=== PATIENT | female | born 2005 | race Caucasian/White ===

== ENCOUNTER 2023-12-05 13:13 | Emergency (ER) | payer SELFPAY ==
[2023-12-05] MEDS: Sodium Chloride 0.9% 10 ML Syringe FLUSH PRN (15:20)
[2023-12-05 15:24] LABS: BASOPHILS ABSOLUTE AUTO 0.1 K/mm3 (0.0-0.2); BASOPHILS PERCENT AUTO 0.8 % (0.0-1.0); EOSINOPHILS ABSOLUTE AUTO 0.2 K/mm3 (0.0-0.4); EOSINOPHILS PERCENT AUTO 1.4 % (0.0-6.0); HEMATOCRIT 42.4 % (37.0-47.0); HEMOGLOBIN 14.3 gm/dl (12.0-16.0); IMMATURE GRAN ABSOLUTE AUTO 0.05 K/mm3 (0.00-0.05); IMMATURE GRAN PERCENT AUTO 0.4 % (0.0-0.4); LYMPHOCYTES ABSOLUTE AUTO 3.3 K/mm3 (1.0-4.8); LYMPHOCYTES PERCENT AUTO 27.6 % (24.0-44.0); MEAN CORPUSCULAR HEMOGLOBIN 28.2 pg (28.0-32.0); MEAN CORPUSCULAR HGB CONC 33.7 g/dl (32.0-36.0); MEAN CORPUSCULAR VOLUME 83.6 fl (83.0-99.0); MEAN PLATELET VOLUME 9.5 fl (9.4-12.3); MONOCYTES ABSOLUTE AUTO 0.8 K/mm3 (0.0-0.8); MONOCYTES PERCENT AUTO 6.6 % (0.0-8.0); NEUTROPHILS ABSOLUTE AUTO 7.6 K/mm3 (1.8-7.7); NEUTROPHILS PERCENT AUTO 63.2 % (41.0-71.0); PLATELET COUNT,PLT 389 K/mm3 (150-400); RED BLOOD CELL COUNT 5.07 M/mm3 (4.10-5.30); WHITE BLOOD CELL COUNT,WBC 12.03 K/mm3 (3.9-11.3)
[2023-12-05 15:32] LABS: ALANINE AMINOTRANSFERASE,ALT 69 U/L (14-59); ALBUMIN 4.3 g/dl (3.4-5.0); ALKALINE PHOSPHATASE 77 U/L (46-116); ASPARTATE AMNIOTRANSFERASE,AST 41 U/L (15-37); BILIRUBIN TOTAL 0.3 mg/dL (0.2-1.0); BLOOD UREA NITROGEN,BUN 13 mg/dL (7-18); BUN/CREATININE RATIO 11.8 (14-18); CALCIUM 9.8 mg/dL (8.5-10.1); CARBON DIOXIDE,CO2 24 mEq/L (21-32); CHLORIDE,CL 103 mEq/L (98-107); CREATININE 1.1 mg/dL (0.55-1.02); EST CRCL DRUG DOSING (CG) 73.41 mL/min; ESTIMATED GFR 74 mL/min (>60); GLUCOSE RANDOM 86 mg/dL (70-99); PROTEIN TOTAL,TP 8.5 g/dl (6.4-8.2); SODIUM,NA 140 mEq/L (136-145)
[2023-12-05] MEDS: Iopamidol 755 Mg/ML 100 ML Bottle IVPUSH ONE (16:00)
[2023-12-05] MEDS: Sodium Chloride 0.9% 10 ML Syringe FLUSH ONE (16:00)
[2023-12-05] MEDS: Sodium Chloride 0.9% 100 ML IV SCH (16:00)
[2023-12-05 19:11] LABS: TROPONIN I HIGH SENSITIVITY < 4 pg/mL (<=51)
== END 2023-12-05 17:52 | disposition home or self-care (01) ==
LOC: JD.ED 13:13
DX: R07.89 Other chest pain (principal); Z86.16 Personal history of COVID-19
CPT/HCPCS: 36415; 71045; 71275; 80053; 84484; 85025; 85379; 93005; 99285; J3490; Q9967; 93010; 99284

== ENCOUNTER 2025-04-29 13:50 | Emergency (ER) | payer BC, MEDICAID ==
[2025-04-29] MEDS ORDERED: Sodium Chloride 0.9% 10 ML Syringe FLUSH PRN (14:08)
[2025-04-29 15:04] LABS: BASOPHILS ABSOLUTE AUTO 0.1 K/mm3 (0.0-0.2); BASOPHILS PERCENT AUTO 0.9 % (0.0-1.0); EOSINOPHILS ABSOLUTE AUTO 0.1 K/mm3 (0.0-0.4); EOSINOPHILS PERCENT AUTO 0.7 % (0.0-6.0); IMMATURE GRAN ABSOLUTE AUTO 0.02 K/mm3 (0.00-0.05); IMMATURE GRAN PERCENT AUTO 0.3 % (0.0-0.4); LYMPHOCYTES ABSOLUTE AUTO 1.6 K/mm3 (1.0-4.8); LYMPHOCYTES PERCENT AUTO 20.7 % (24.0-44.0); MEAN PLATELET VOLUME 10.9 fl (9.4-12.3); MONOCYTES ABSOLUTE AUTO 0.8 K/mm3 (0.0-0.8); MONOCYTES PERCENT AUTO 11.2 % (0.0-8.0); NEUTROPHILS ABSOLUTE AUTO 5.0 K/mm3 (1.8-7.7); NEUTROPHILS PERCENT AUTO 66.2 % (41.0-71.0); NRBC ABSOLUTE 0.00 (0.00-0.02); NRBC PERCENT 0.0 % (0.0-0.2); PLATELET COUNT,PLT 340 K/mm3 (150-400); RED BLOOD CELL COUNT 5.76 M/mm3 (4.10-5.30); WHITE BLOOD CELL COUNT,WBC 7.52 K/mm3 (3.9-11.3)
[2025-04-29 15:35] LABS: A/G RATIO 1.1 (1-2); ALANINE AMINOTRANSFERASE,ALT 172.0 U/L (14-59); ASPARTATE AMNIOTRANSFERASE,AST 83.0 U/L (15-37); BILIRUBIN TOTAL 1.0 mg/dL (0.2-1.0); BLOOD UREA NITROGEN,BUN 8.0 mg/dL (7-18); CARBON DIOXIDE,CO2 13.0 mEq/L (21-32); CHLORIDE,CL 104.0 mEq/L (98-107); CREATININE 0.9 mg/dL (0.55-1.02); EST CRCL DRUG DOSING (CG) 88.23 mL/min; ESTIMATED GFR 93.0 mL/min (>60); GLUCOSE RANDOM 87.0 mg/dL (70-99); POTASSIUM,K 3.2 mEq/L (3.5-5.1); PROTEIN TOTAL,TP 8.6 g/dl (6.4-8.2); SODIUM,NA 139.0 mEq/L (136-145)
[2025-04-29] MEDS: Sucralfate Suspension 1 GM/10 ML Cup PO ONE (16:56)
[2025-04-29] MEDS: Ondansetron 4 MG/2 ML SDV IVPUSH ONE (16:56)
[2025-04-29 18:43] LABS: APPEARANCE,URINE CLEAR (Clear); GLUCOSE,URINE NEGATIVE (Negative); OCCULT BLOOD,URINE NEGATIVE (Negative)
[2025-04-29 19:29] LABS: COARSE GRANULAR CASTS,URINE 0-5 /hpf (0-5); EPITHELIAL CELLS,URINE 0-5 /hpf (0-5)
[2025-04-29] MEDS: Potassium Chloride 20 MEQ Tab.ER PO ONE (19:59)
== END 2025-04-29 19:45 | disposition home or self-care (01) ==
LOC: JD.ED 13:50
DX: K21.9 Gastro-esophageal reflux disease without esophagitis (principal); E86.0 Dehydration; E87.6 Hypokalemia; Z79.899 Other long term (current) drug therapy; Z86.16 Personal history of COVID-19
CPT/HCPCS: 36415; 74019; 80053; 81001; 83690; 84703; 85025; 86140; 96361; 96374; 99284; A9270; J2405; J7030

== ENCOUNTER 2025-05-13 08:31 | Inpatient (IN) | payer BC ==
[2025-05-13] MEDS ORDERED: Sodium Chloride 0.9% 10 ML Syringe FLUSH PRN (08:59)
[2025-05-13 09:05] LABS: BASOPHILS ABSOLUTE AUTO 0.1 K/mm3 (0.0-0.2); BASOPHILS PERCENT AUTO 0.8 % (0.0-1.0); EOSINOPHILS ABSOLUTE AUTO 0.1 K/mm3 (0.0-0.4); EOSINOPHILS PERCENT AUTO 0.8 % (0.0-6.0); IMMATURE GRAN ABSOLUTE AUTO 0.02 K/mm3 (0.00-0.05); IMMATURE GRAN PERCENT AUTO 0.3 % (0.0-0.4); LYMPHOCYTES ABSOLUTE AUTO 1.0 K/mm3 (1.0-4.8); LYMPHOCYTES PERCENT AUTO 15.7 % (24.0-44.0); MEAN PLATELET VOLUME 10.6 fl (9.4-12.3); MONOCYTES ABSOLUTE AUTO 0.7 K/mm3 (0.0-0.8); MONOCYTES PERCENT AUTO 10.3 % (0.0-8.0); NEUTROPHILS ABSOLUTE AUTO 4.7 K/mm3 (1.8-7.7); NEUTROPHILS PERCENT AUTO 72.1 % (41.0-71.0); NRBC ABSOLUTE 0.00 (0.00-0.02); NRBC PERCENT 0.0 % (0.0-0.2); PLATELET COUNT,PLT 316 K/mm3 (150-400); RED BLOOD CELL COUNT 4.84 M/mm3 (4.10-5.30); WHITE BLOOD CELL COUNT,WBC 6.49 K/mm3 (3.9-11.3)
[2025-05-13] MEDS: Ondansetron 4 MG/2 ML SDV IVPUSH ONE (09:14)
[2025-05-13 09:31] LABS: A/G RATIO 1.1 (1-2); ALANINE AMINOTRANSFERASE,ALT 47.0 U/L (14-59); ASPARTATE AMNIOTRANSFERASE,AST 22.0 U/L (15-37); BILIRUBIN TOTAL 0.6 mg/dL (0.2-1.0); BLOOD UREA NITROGEN,BUN 6.0 mg/dL (7-18); CARBON DIOXIDE,CO2 19.0 mEq/L (21-32); CHLORIDE,CL 105.0 mEq/L (98-107); CREATININE 0.7 mg/dL (0.55-1.02); EST CRCL DRUG DOSING (CG) 113.43 mL/min; ESTIMATED GFR 125.0 mL/min (>60); GLUCOSE RANDOM 101.0 mg/dL (70-99); POTASSIUM,K 3.2 mEq/L (3.5-5.1); PROTEIN TOTAL,TP 7.8 g/dl (6.4-8.2); SODIUM,NA 141.0 mEq/L (136-145)
[2025-05-13] MEDS: Iopamidol 612 MG/ML 100 ML Bottle IVPUSH ONE (10:02)
[2025-05-13] MEDS: Sodium Chloride 0.9% 10 ML Syringe FLUSH PRN (10:02)
[2025-05-13] MEDS ORDERED: Ketorolac 30 MG/ML SDV IV PRN (17:24)
[2025-05-13] MEDS: fentaNYL 100 MCG/2 ML SDV IVPUSH ONE (17:49)
[2025-05-13] MEDS: Ondansetron 4 MG/2 ML SDV IV PRN (18:32)
[2025-05-13] MEDS: Lactated Ringers 1,000 ML IV SCH (18:34)
[2025-05-13] MEDS: Potassium Chloride 20 MEQ Tab.ER PO ONE (19:00)
[2025-05-14 04:32] LABS: BASOPHILS ABSOLUTE AUTO 0.1 K/mm3 (0.0-0.2); BASOPHILS PERCENT AUTO 0.8 % (0.0-1.0); EOSINOPHILS ABSOLUTE AUTO 0.1 K/mm3 (0.0-0.4); EOSINOPHILS PERCENT AUTO 1.4 % (0.0-6.0); IMMATURE GRAN ABSOLUTE AUTO 0.01 K/mm3 (0.00-0.05); IMMATURE GRAN PERCENT AUTO 0.2 % (0.0-0.4); LYMPHOCYTES ABSOLUTE AUTO 2.0 K/mm3 (1.0-4.8); LYMPHOCYTES PERCENT AUTO 30.9 % (24.0-44.0); MEAN PLATELET VOLUME 10.3 fl (9.4-12.3); MONOCYTES ABSOLUTE AUTO 0.8 K/mm3 (0.0-0.8); MONOCYTES PERCENT AUTO 11.8 % (0.0-8.0); NEUTROPHILS ABSOLUTE AUTO 3.5 K/mm3 (1.8-7.7); NEUTROPHILS PERCENT AUTO 54.9 % (41.0-71.0); NRBC ABSOLUTE 0.00 (0.00-0.02); NRBC PERCENT 0.0 % (0.0-0.2); PLATELET COUNT,PLT 266 K/mm3 (150-400); RED BLOOD CELL COUNT 4.30 M/mm3 (4.10-5.30); WHITE BLOOD CELL COUNT,WBC 6.43 K/mm3 (3.9-11.3)
[2025-05-14 04:58] LABS: A/G RATIO 1.0 (1-2); ALANINE AMINOTRANSFERASE,ALT 40.0 U/L (14-59); ASPARTATE AMNIOTRANSFERASE,AST 19.0 U/L (15-37); BILIRUBIN TOTAL 0.6 mg/dL (0.2-1.0); BLOOD UREA NITROGEN,BUN 4.0 mg/dL (7-18); CARBON DIOXIDE,CO2 22.0 mEq/L (21-32); CHLORIDE,CL 105.0 mEq/L (98-107); CREATININE 0.7 mg/dL (0.55-1.02); EST CRCL DRUG DOSING (CG) 113.43 mL/min; ESTIMATED GFR 125.0 mL/min (>60); GLUCOSE RANDOM 87.0 mg/dL (70-99); PHOSPHORUS 3.3 mg/dL (2.6-4.7); POTASSIUM,K 3.0 mEq/L (3.5-5.1); PROTEIN TOTAL,TP 6.5 g/dl (6.4-8.2); SODIUM,NA 140.0 mEq/L (136-145)
[2025-05-14] MEDS: Potassium Chloride 20 MEQ Tab.ER PO ONE (08:16)
[2025-05-14] MEDS: Magnesium Sulfate 2 GM/50 mL 2 GM in Premix Bag 1 BAG IV ONE (08:16)
[2025-05-14] MEDS: Lactated Ringers 1,000 ML IV SCH ×2 (11:03→21:48)
[2025-05-14 16:55] LABS: CHOLESTEROL HDL 29 mg/dL (40-59); CHOLESTEROL LDL DIRECT 56 mg/dL (<100); CHOLESTEROL TOTAL 100 mg/dL (<200)
[2025-05-14] MEDS ORDERED: Lactated Ringers 1,000 ML IV SCH (21:00)
[2025-05-15 04:16] LABS: BASOPHILS ABSOLUTE AUTO 0.0 K/mm3 (0.0-0.2); BASOPHILS PERCENT AUTO 0.9 % (0.0-1.0); EOSINOPHILS ABSOLUTE AUTO 0.1 K/mm3 (0.0-0.4); EOSINOPHILS PERCENT AUTO 2.4 % (0.0-6.0); IMMATURE GRAN ABSOLUTE AUTO 0.01 K/mm3 (0.00-0.05); IMMATURE GRAN PERCENT AUTO 0.2 % (0.0-0.4); LYMPHOCYTES ABSOLUTE AUTO 1.8 K/mm3 (1.0-4.8); LYMPHOCYTES PERCENT AUTO 39.1 % (24.0-44.0); MEAN PLATELET VOLUME 10.8 fl (9.4-12.3); MONOCYTES ABSOLUTE AUTO 0.6 K/mm3 (0.0-0.8); MONOCYTES PERCENT AUTO 12.1 % (0.0-8.0); NEUTROPHILS ABSOLUTE AUTO 2.1 K/mm3 (1.8-7.7); NEUTROPHILS PERCENT AUTO 45.3 % (41.0-71.0); NRBC ABSOLUTE 0.00 (0.00-0.02); NRBC PERCENT 0.0 % (0.0-0.2); PLATELET COUNT,PLT 246 K/mm3 (150-400); RED BLOOD CELL COUNT 4.22 M/mm3 (4.10-5.30); WHITE BLOOD CELL COUNT,WBC 4.63 K/mm3 (3.9-11.3)
[2025-05-15 04:41] LABS: A/G RATIO 0.9 (1-2); ALANINE AMINOTRANSFERASE,ALT 36.0 U/L (14-59); ASPARTATE AMNIOTRANSFERASE,AST 19.0 U/L (15-37); BILIRUBIN TOTAL 0.5 mg/dL (0.2-1.0); BLOOD UREA NITROGEN,BUN 2.0 mg/dL (7-18); CARBON DIOXIDE,CO2 23.0 mEq/L (21-32); CHLORIDE,CL 106.0 mEq/L (98-107); CREATININE 0.6 mg/dL (0.55-1.02); EST CRCL DRUG DOSING (CG) 132.34 mL/min; ESTIMATED GFR 130.0 mL/min (>60); GLUCOSE RANDOM 84.0 mg/dL (70-99); POTASSIUM,K 3.0 mEq/L (3.5-5.1); PROTEIN TOTAL,TP 5.9 g/dl (6.4-8.2); SODIUM,NA 142.0 mEq/L (136-145)
[2025-05-15] MEDS: Magnesium Sulf/Wat 4 GM/50 mL 4 GM in Premix Bag 1 BAG IV ONE (08:34)
[2025-05-15] MEDS: Potassium Chloride 20 MEQ Tab.ER PO ONE (08:34)
[2025-05-15] MEDS: Lactated Ringers 1,000 ML IV SCH (19:46)
[2025-05-16 04:13] LABS: BASOPHILS ABSOLUTE AUTO 0.1 K/mm3 (0.0-0.2); BASOPHILS PERCENT AUTO 0.8 % (0.0-1.0); EOSINOPHILS ABSOLUTE AUTO 0.1 K/mm3 (0.0-0.4); EOSINOPHILS PERCENT AUTO 2.2 % (0.0-6.0); IMMATURE GRAN ABSOLUTE AUTO 0.01 K/mm3 (0.00-0.05); IMMATURE GRAN PERCENT AUTO 0.2 % (0.0-0.4); LYMPHOCYTES ABSOLUTE AUTO 2.2 K/mm3 (1.0-4.8); LYMPHOCYTES PERCENT AUTO 36.5 % (24.0-44.0); MEAN PLATELET VOLUME 10.6 fl (9.4-12.3); MONOCYTES ABSOLUTE AUTO 0.8 K/mm3 (0.0-0.8); MONOCYTES PERCENT AUTO 12.7 % (0.0-8.0); NEUTROPHILS ABSOLUTE AUTO 2.9 K/mm3 (1.8-7.7); NEUTROPHILS PERCENT AUTO 47.6 % (41.0-71.0); NRBC ABSOLUTE 0.00 (0.00-0.02); NRBC PERCENT 0.0 % (0.0-0.2); PLATELET COUNT,PLT 265 K/mm3 (150-400); RED BLOOD CELL COUNT 4.27 M/mm3 (4.10-5.30); WHITE BLOOD CELL COUNT,WBC 5.98 K/mm3 (3.9-11.3)
[2025-05-16 04:39] LABS: A/G RATIO 1.0 (1-2); ALANINE AMINOTRANSFERASE,ALT 36.0 U/L (14-59); ASPARTATE AMNIOTRANSFERASE,AST 19.0 U/L (15-37); BILIRUBIN TOTAL 0.5 mg/dL (0.2-1.0); BLOOD UREA NITROGEN,BUN 2.0 mg/dL (7-18); CARBON DIOXIDE,CO2 25.0 mEq/L (21-32); CHLORIDE,CL 106.0 mEq/L (98-107); CREATININE 0.7 mg/dL (0.55-1.02); EST CRCL DRUG DOSING (CG) 113.43 mL/min; ESTIMATED GFR 125.0 mL/min (>60); GLUCOSE RANDOM 91.0 mg/dL (70-99); POTASSIUM,K 3.1 mEq/L (3.5-5.1); PROTEIN TOTAL,TP 6.2 g/dl (6.4-8.2); SODIUM,NA 141.0 mEq/L (136-145)
[2025-05-16] MEDS ORDERED: Ondansetron 4 MG Tab.DIS PO PRN (08:34)
[2025-05-16] MEDS: Magnesium Sulfate 2 GM/50 mL 2 GM in Premix Bag 1 BAG IV ONE (08:52)
[2025-05-16] MEDS: Potassium Bicarbonate/Cit Ac 20 MEQ Effervescent Tab PO ONE (09:01)
[2025-05-16] MEDS: Potassium Chloride 20 MEQ Tab.ER PO ONE (22:04)
[2025-05-17 07:12] LABS: BLOOD UREA NITROGEN,BUN 1.0 mg/dL (7-18); CARBON DIOXIDE,CO2 23.0 mEq/L (21-32); CHLORIDE,CL 102.0 mEq/L (98-107); CREATININE 0.6 mg/dL (0.55-1.02); EST CRCL DRUG DOSING (CG) 132.34 mL/min; ESTIMATED GFR 130.0 mL/min (>60); GLUCOSE RANDOM 81.0 mg/dL (70-99); PHOSPHORUS 4.2 mg/dL (2.6-4.7); POTASSIUM,K 3.5 mEq/L (3.5-5.1); SODIUM,NA 139.0 mEq/L (136-145)
== END 2025-05-17 15:46 | disposition home or self-care (01) | DRG 282 ==
LOC: JD.ED 08:31 → JD.MS 17:24
PROVIDERS: ADMIT Family Medicine; ATTEND Family Medicine
DX: K85.90 Acute pancreatitis without necrosis or infection, unspecified (principal); R63.4 Abnormal weight loss; H54.7 Unspecified visual loss; F41.9 Anxiety disorder, unspecified; F32.A Depression, unspecified; F12.90 Cannabis use, unspecified, uncomplicated; E87.6 Hypokalemia; K66.9 Disorder of peritoneum, unspecified; K76.0 Fatty (change of) liver, not elsewhere classified; E83.42 Hypomagnesemia; E86.0 Dehydration; Z86.16 Personal history of COVID-19; Z98.890 Other specified postprocedural states; Z68.28 Body mass index [BMI] 28.0-28.9, adult; Z90.49 Acquired absence of other specified parts of digestive tract; Z79.899 Other long term (current) drug therapy; Z87.442 Personal history of urinary calculi
CPT/HCPCS: 36415; 74177; 74177-26; 80048; 80053; 80061; 83690; 83735; 84100; 84703; 85025; 96361; 96374; 96375; 99285; 99285-25; A9270-GY; J1650; J2405; J2765; J3475; J3480; J7030; J7120; Q9967

== ENCOUNTER 2025-05-26 15:53 | Emergency (ER) | payer BC ==
[2025-05-26] MEDS: droPERidol 2.5 MG/ML SDV IV STA (16:42)
[2025-05-26] MEDS: Lactated Ringers 1,000 ML IV ONE (16:44)
[2025-05-26 16:50] LABS: BASOPHILS ABSOLUTE AUTO 0.1 K/mm3 (0.0-0.2); BASOPHILS PERCENT AUTO 1.1 % (0.0-1.0); EOSINOPHILS ABSOLUTE AUTO 0.1 K/mm3 (0.0-0.4); EOSINOPHILS PERCENT AUTO 1.9 % (0.0-6.0); IMMATURE GRAN ABSOLUTE AUTO 0.02 K/mm3 (0.00-0.05); IMMATURE GRAN PERCENT AUTO 0.3 % (0.0-0.4); LYMPHOCYTES ABSOLUTE AUTO 1.6 K/mm3 (1.0-4.8); LYMPHOCYTES PERCENT AUTO 25.5 % (24.0-44.0); MEAN PLATELET VOLUME 9.9 fl (9.4-12.3); MONOCYTES ABSOLUTE AUTO 0.6 K/mm3 (0.0-0.8); MONOCYTES PERCENT AUTO 10.0 % (0.0-8.0); NEUTROPHILS ABSOLUTE AUTO 3.9 K/mm3 (1.8-7.7); NEUTROPHILS PERCENT AUTO 61.2 % (41.0-71.0); NRBC ABSOLUTE 0.00 (0.00-0.02); NRBC PERCENT 0.0 % (0.0-0.2); PLATELET COUNT,PLT 325 K/mm3 (150-400); RED BLOOD CELL COUNT 5.58 M/mm3 (4.10-5.30); WHITE BLOOD CELL COUNT,WBC 6.38 K/mm3 (3.9-11.3)
[2025-05-26] MEDS: LORazepam 2 MG/ML SDV IVPUSH STA (17:00)
[2025-05-26 17:16] LABS: A/G RATIO 1.0 (1-2); ALANINE AMINOTRANSFERASE,ALT 102.0 U/L (14-59); ASPARTATE AMNIOTRANSFERASE,AST 43.0 U/L (15-37); BILIRUBIN TOTAL 0.9 mg/dL (0.2-1.0); BLOOD UREA NITROGEN,BUN 9.0 mg/dL (7-18); CHLORIDE,CL 98.0 mEq/L (98-107); CREATINE KINASE,CK 57.0 U/L (26-192); CREATININE 0.8 mg/dL (0.55-1.02); EST CRCL DRUG DOSING (CG) 99.25 mL/min; ESTIMATED GFR 107.0 mL/min (>60); GLUCOSE RANDOM 97.0 mg/dL (70-99); PROTEIN TOTAL,TP 8.3 g/dl (6.4-8.2); SODIUM,NA 141.0 mEq/L (136-145)
[2025-05-26 17:18] LABS: POTASSIUM,K 3.6 mEq/L (3.5-5.1)
[2025-05-26 17:40] LABS: CARBON DIOXIDE,CO2 28.0 mEq/L (21-32)
== END 2025-05-26 19:11 | disposition home or self-care (01) ==
LOC: JD.ED 15:53
DX: K85.90 Acute pancreatitis without necrosis or infection, unspecified (principal); F41.9 Anxiety disorder, unspecified; Z79.899 Other long term (current) drug therapy; Z86.16 Personal history of COVID-19; Z90.49 Acquired absence of other specified parts of digestive tract
CPT/HCPCS: 36415; 80053; 82550; 83690; 83735; 85025; 93005; 96361; 96374; 96375; 99284; J1790; J2060; J7120